=== PATIENT | male | born 2000 | race Caucasian/White ===

== ENCOUNTER 2019-04-19 19:35 | Emergency (ER) | payer OTHER, SELFPAY ==
[2019-04-19 20:07] VITALS: BP 143/89; PULSE 105; RESP 18; TEMP 36.8; O2SAT 99; BMI 23.1
[2019-04-19 20:14] VITALS: BMI 23.1
--- NOTE | 2019-04-19 20:18 | XRR_ITS ---
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 Views: 3 or more views. COMPARISON: No relevant prior studies available. FINDINGS: Bones/joints: Normal. Soft tissues: Normal. XR/XR hand RT min 3V* [id number] IMPRESSION: No acute findings.
--- NOTE | 2019-04-19 20:18 | W.ED.EXTPRO ---
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 His right hand had a rag in it and wrapped the rag around his hand and then caught the second auger mixer. And they had to cut the rag away from the auger on his hand. Complains about pain on the dorsal service and the ulnar side. MD Complaint: extremity pain Onset (ago): minute(s) Pain Consistency: constant Location: right and upper extremity Severity scale (1-10): 3 Quality: aching Radiation: none Relieving factors: cold therapy Associated symptoms: Deny chest pain, fever(s) or rash Review of Systems Const: Denies: fever, chills or body aches Eyes: Denies: change in vision or blurry vision ENMT: Denies: throat pain or nasal congestion Card: Denies: chest pain or shortness of breath on exertion Resp: Denies: shortness of breath, productive cough or non-productive cough GI: Denies: abdominal pain, nausea or vomiting : Denies: difficulty urinating Musc: Reports: extremity pain (Right hand the HPI) Skin/Breast: Denies: rash Neuro: Denies: headache Psych: Denies: anxiety or depression Boubacar/Lymph: Denies: easy bruising PFSH ED PFSH: Statuses (acute, chronic, etc) shown below reflect problem list status as previously entered and may not be historically accurate Social History Smoking and tobacco status: former smoker Physical Exam Const: COMMON NORMALS: no apparent distress, average body habitus and oriented x3 HENMT: COMMON NORMALS: normocephalic HEAD & SCALP: normal to inspection and normocephalic FACE & SINUS: normal facial exam Eye: COMMON NORMALS: conjunctivae normal GENERAL EYE: normal appearance of both eyes CONJUNCTIVA: Yes conjunctivae normal Neck/C-Spine: COMMON NORMALS: no JVD Chest: COMMONS NORMALS: inspection of chest normal Resp: COMMON NORMALS: normal respiratory effort and clear to auscultation bilaterally AUSCULTATION: clear to auscultation bilaterally Cardio: COMMON NORMALS: no JVD, regular rate and regular rhythm RATE: regular rate RHYTHM: regular rhythm GI: COMMON NORMALS: normal to inspection, nondistended, normoactive bowel sounds Extremity: COMMON NORMALS: normal to inspection and full ROM RIGHT UPPER EXTREMITY: Yes hand & digits (Right hand with tenderness to the dorsal aspect near the ulnar side. No abrasions no swelling no lacerations. Has good range of motion.) Neuro: COMMON NORMALS: oriented x3 Course Vital Signs: Vital signs: Vital Signs Temperature 98.3 F 04/19/19 20:07 Pulse Rate 105 H 04/19/19 20:07 Respiratory Rate 18 04/19/19 20:07 Blood Pressure 143/89 04/19/19 20:07 Pulse Oximetry 99 04/19/19 20:07 Coding Level of Care Code ED [employer] Consult[employer] for [employer]oon [employer]incon
[2019-04-19 20:19] VITALS: BP 143/76; PULSE 82; RESP 14; TEMP 36.8; O2SAT 99
[2019-04-19 20:29] VITALS: PULSE 74
[2019-04-19 20:49] VITALS: BP 144/72; PULSE 76; RESP 14; TEMP 36.7; O2SAT 99
== END 2019-04-19 20:35 | disposition home or self-care (01) ==
PROVIDERS: Emergency Provider Nurse Practitioner Family; Family Provider Family Medicine; PCP Family Medicine
DX: M79.641 Pain in right hand (principal); Z87.891 Personal history of nicotine dependence
CPT/HCPCS: 73130; 99282